=== PATIENT | female | born 1945 | race Two or more races ===

== ENCOUNTER 2016-04-06 14:38 | Inpatient (IN) | payer MEDICAID ==
[2016-04-06] VITALS (19 sets, daily range): BP systolic 49–128; BP diastolic 26–58
[~2016-04-06] VITALS: Ht 160 cm; Wt 48.2 kg
[~2016-04-06 14:38] MED LIST: ASPI-231 PO; DOCU-80 PO; FOLITAB45 OR; MIDO10TA PO; OMEP20CA5 PO; PRE5T GT; SEVE800T8 PO; SIMV-13 PO
[2016-04-06] MEDS ORDERED: NITROGLYCERIN 0.4 MG SL TAB SL PRN (16:30)
[2016-04-06] MEDS ORDERED: MORPHINE SULF INJ 2 MG/ML SYRINGE 1ML IV PRN ×2 (16:30)
[2016-04-06] MEDS ORDERED: ONDANSETRON HCL 4 MG/2 ML VIAL IV PRN (16:30)
[2016-04-06] MEDS ORDERED: cefTRIAXone 1GM/50ML D5W 50 ML IV ONE (16:30)
[2016-04-06 16:45] LABS: Albumin 3.6 g/dL (3.4-5.0); BUN/Creatinine Ratio 10.9; Calcium 8.2 mg/dL (8.5-10.1); Magnesium 3.7 mg/dL (1.6-2.6); Potassium 4.1 mmol/L (3.5-5.1)
[2016-04-06] MEDS ORDERED: PANTOPRAZOLE SODIUM 40 MG/10 ML VIAL IV ONE (16:45)
[2016-04-06 16:47] LABS: Bilirubin, Total 0.5 mg/dL (0.2-1.0); Total Protein 7.4 g/dL (6.4-8.2)
[2016-04-06] MEDS ORDERED: ETOMIDATE (2MG/ML) 20ML VIAL IV ONE ×2 (16:48→17:00)
[2016-04-06] MEDS ORDERED: SUCCINYLCHOLINE CHLORIDE 20 MG/ML 10ML VIAL IV ONE ×2 (16:49→17:00)
[2016-04-06] MEDS ORDERED: ROCURONIUM 10MG/ML 10ML VIAL IV ONE (16:49)
[2016-04-06] MEDS ORDERED: MIDAZOLAM DRIP 100 mg/100mL NS 100 ML IV ONE (16:53)
[2016-04-06] MEDS ORDERED: ENOXAPARIN SOD 30 MG/0.3 ML SYRINGE SC ONE (17:00)
[2016-04-06] MEDS ORDERED: MIDAZOLAM DRIP 100 mg/100mL NS 100 ML IV SCH (17:15)
[2016-04-06] MEDS ORDERED: AZITHROMYCIN 500MG/D5W 250ML 250 ML IV ONE (17:15)
[2016-04-06] MEDS: BUMETANIDE (0.25MG/ML) 4 ML VIAL IV SCH (17:31)
[2016-04-06] MEDS ORDERED: PROPOFOL 100 ML IV ONE (17:38)
[2016-04-06] MEDS ORDERED: PROPOFOL 10 MG/ML 20 ML IV ONE (17:45)
[2016-04-06] MEDS ORDERED: PROPOFOL 100 ML IV SCH (17:45)
[2016-04-06 17:58] LABS: Basophils # (auto) 0 uL; Basophils % (auto) 0.2 % (0.0-2.0); DEFINITIVE VIEW TRANSMISSION; Eosinophils # (auto) 0.1 uL; Eosinophils % (auto) 0.6 % (0.0-7.0); Hematocrit 28.6 % (36.0-46.0); Hemoglobin 8.5 g/dL (12.2-16.2); Lymphocytes # (auto) 1.1 uL; Lymphocytes % (auto) 5.8 % (10.0-50.0); Mean Corpuscular Hemoglobin 32.5 pg (28.0-32.0); Mean Corpuscular Hgb Conc. 29.7 g/dL (32.0-36.0); Mean Corpuscular Volume 109.5 fL (80.0-100.0); Mean Platelet Volume 7.6 fL (7.4-10.4); Monocytes # (auto) 2.2 uL; Monocytes % (auto) 11.7 % (0.0-12.0); Neutrophils # (auto) 15.3 uL; Neutrophils % (auto) 81.7 % (37.0-80.0); Platelet Count (auto) 409 10^3/uL (140-450); White Blood Cell 18.7 10^3/uL (4.4-10.8)
[2016-04-06] MEDS: NOREPINEPHRINE BITARTRATE 250 ML IV SCH ×3 (17:59→20:00)
[2016-04-06] MEDS: ALBUTEROL SULF 2.5 MG/0.5ML(0.5%) NEB SOLN NEB SCH (18:00)
[2016-04-06] MEDS: IPRATROPIUM BROM 0.5 MG/2.5ML INH SOL NEB SCH (18:00)
[2016-04-06 18:01] LABS: Red Cell Distribution Width 23.3 % (11.6-16.0)
[2016-04-06 18:26] LABS: Anisocytosis Moderate; Macrocytosis Moderate; Platelet Estimate Adequate
[2016-04-06] MEDS: PROPOFOL 100 ML IV SCH (20:00)
[2016-04-06] MEDS: MIDAZOLAM DRIP 100 mg/100mL NS 100 ML IV SCH (20:00)
[2016-04-06] MEDS: SODIUM CHLORIDE 0.9% 1,000 ML IV SCH (20:00)
[2016-04-06] MEDS ORDERED: FAMOTIDINE (10MG/ML) 2ML VL IV SCH (22:00)
[2016-04-06] MEDS ORDERED: INFLUENZA QUAD 2016-2017 0.5 ML SYRG IM ONE (22:30)
[2016-04-06] MEDS ORDERED: PNEUMOCOCCAL VACC POLYS 25 MCG/0.5 ML VIAL IM ONE (22:30)
[2016-04-07] VITALS (106 sets, daily range): BP systolic 81–152; BP diastolic 21–82
[2016-04-07] MEDS: IPRATROPIUM BROM 0.5 MG/2.5ML INH SOL NEB SCH ×4 (00:25→18:42)
[2016-04-07] MEDS: ALBUTEROL SULF 2.5 MG/0.5ML(0.5%) NEB SOLN NEB SCH ×4 (00:25→18:42)
[2016-04-07] MEDS: ACCU-CHEK COMFORT CURVE STRIP VI SCH ×4 (01:00→17:52)
[2016-04-07] MEDS: InsuLIN REG 1unit/0.01ml Soln (100units/ml) SC SCH ×4 (01:00→17:52)
[2016-04-07 03:50] LABS: Basophils # (auto) 0 uL; DEFINITIVE VIEW TRANSMISSION; Eosinophils # (auto) 0.1 uL; Eosinophils % (auto) 0.2 % (0.0-7.0); Hematocrit 25.5 % (36.0-46.0); Hemoglobin 7.8 g/dL (12.2-16.2); Lymphocytes # (auto) 1.4 uL; Lymphocytes % (auto) 6.6 % (10.0-50.0); Mean Corpuscular Hemoglobin 32.2 pg (28.0-32.0); Mean Corpuscular Hgb Conc. 30.4 g/dL (32.0-36.0); Mean Corpuscular Volume 105.8 fL (80.0-100.0); Mean Platelet Volume 7.9 fL (7.4-10.4); Monocytes # (auto) 1.6 uL; Monocytes % (auto) 7.4 % (0.0-12.0); Neutrophils # (auto) 18.3 uL; Neutrophils % (auto) 85.8 % (37.0-80.0); Platelet Count (auto) 394 10^3/uL (140-450); White Blood Cell 21.3 10^3/uL (4.4-10.8)
[2016-04-07 04:02] LABS: BUN/Creatinine Ratio 11.7; Calcium 8.3 mg/dL (8.5-10.1); Potassium 3.9 mmol/L (3.5-5.1)
[2016-04-07 04:04] LABS: Red Cell Distribution Width 24.2 % (11.6-16.0)
[2016-04-07 04:05] LABS: Bilirubin, Total 0.5 mg/dL (0.2-1.0); Total Protein 6.6 g/dL (6.4-8.2)
[2016-04-07 04:20] LABS: INR 1.23 (0.9-1.15); Prothrombin Time 12.7 sec (9.37-12.3)
[2016-04-07 04:33] LABS: Anisocytosis Moderate; Hypochromia Moderate; Macrocytosis Moderate; Platelet Estimate Adequate
[2016-04-07 04:34] LABS: Polychromasia Slight
[2016-04-07] MEDS: BUMETANIDE (0.25MG/ML) 4 ML VIAL IV SCH ×2 (06:00→19:00)
[2016-04-07] MEDS: PANTOPRAZOLE SODIUM 40 MG/10 ML VIAL IV SCH (09:31)
[2016-04-07] MEDS: cefTRIAXone 1GM/50ML D5W 50 ML IV SCH (09:31)
[2016-04-07] MEDS ORDERED: ENOXAPARIN SOD 30 MG/0.3 ML SYRINGE SC SCH (10:00)
[2016-04-07] MEDS ORDERED: ENOXAPARIN SOD 100 MG/1 ML SYRINGE SC SCH ×2 (10:00→22:00)
[2016-04-07] MEDS ORDERED: ENOXAPARIN SOD 40 MG/0.4 ML SYRINGE SC SCH (10:00)
[2016-04-07] MEDS: AZITHROMYCIN 500MG/D5W 250ML 250 ML IV SCH (13:05)
[2016-04-07] MEDS: SODIUM CHLORIDE 0.9% 1,000 ML IV SCH (13:05)
[2016-04-07] MEDS: PROPOFOL 100 ML IV SCH (14:00)
[2016-04-07] MEDS: NOREPINEPHRINE BITARTRATE 250 ML IV SCH (17:51)
[2016-04-07] MEDS: MIDAZOLAM DRIP 100 mg/100mL NS 100 ML IV SCH (19:00)
[2016-04-08] VITALS (96 sets, daily range): BP systolic 89–147; BP diastolic 33–98
[2016-04-08] MEDS: ALBUTEROL SULF 2.5 MG/0.5ML(0.5%) NEB SOLN NEB SCH ×4 (00:16→18:44)
[2016-04-08] MEDS: IPRATROPIUM BROM 0.5 MG/2.5ML INH SOL NEB SCH ×4 (00:16→18:44)
[2016-04-08] MEDS: ACCU-CHEK COMFORT CURVE STRIP VI SCH ×5 (00:28→23:44)
[2016-04-08] MEDS: SODIUM CHLORIDE 0.9% 1,000 ML IV SCH ×2 (01:50→17:35)
[2016-04-08] MEDS: PROPOFOL 100 ML IV SCH ×2 (04:05→09:47)
[2016-04-08] MEDS: InsuLIN REG 1unit/0.01ml Soln (100units/ml) SC SCH ×5 (06:30→23:46)
[2016-04-08] MEDS: BUMETANIDE (0.25MG/ML) 4 ML VIAL IV SCH ×2 (06:30→17:35)
[2016-04-08 08:00] LABS: Basophils # (auto) 0 uL; Basophils % (auto) 0.2 % (0.0-2.0); DEFINITIVE VIEW TRANSMISSION; Eosinophils # (auto) 0.1 uL; Hematocrit 23.5 % (36.0-46.0); Hemoglobin 7.5 g/dL (12.2-16.2); Lymphocytes # (auto) 1.8 uL; Lymphocytes % (auto) 12.6 % (10.0-50.0); Mean Corpuscular Hemoglobin 32.7 pg (28.0-32.0); Mean Corpuscular Hgb Conc. 31.7 g/dL (32.0-36.0); Mean Platelet Volume 8.2 fL (7.4-10.4); Monocytes # (auto) 1.4 uL; Monocytes % (auto) 9.8 % (0.0-12.0); Neutrophils # (auto) 10.9 uL; Neutrophils % (auto) 76.4 % (37.0-80.0); Platelet Count (auto) 347 10^3/uL (140-450); White Blood Cell 14.3 10^3/uL (4.4-10.8)
[2016-04-08 08:04] LABS: Red Cell Distribution Width 24.6 % (11.6-16.0)
[2016-04-08 08:24] LABS: Albumin 2.7 g/dL (3.4-5.0); BUN/Creatinine Ratio 13.7; Bilirubin, Total 0.5 mg/dL (0.2-1.0); Calcium 8.5 mg/dL (8.5-10.1); Potassium 4.6 mmol/L (3.5-5.1); Total Protein 5.9 g/dL (6.4-8.2)
[2016-04-08] MEDS: cefTRIAXone 1GM/50ML D5W 50 ML IV SCH (09:00)
[2016-04-08] MEDS ORDERED: METOPROLOL TARTRATE 1MG/1ML-5ML VIAL IV PRN ×2 (09:30→11:00)
[2016-04-08] MEDS: ENOXAPARIN SOD 60 MG/0.6 ML SYRINGE SC SCH (10:04)
[2016-04-08] MEDS: PANTOPRAZOLE SODIUM 40 MG/10 ML VIAL IV SCH (10:04)
[2016-04-08] MEDS: AZITHROMYCIN 500MG/D5W 250ML 250 ML IV SCH (10:04)
[2016-04-08] MEDS ORDERED: SODIUM CHL 0.9% 1000 ML BAG XX ONE (12:30)
[2016-04-08] MEDS ORDERED: EPOETIN ALFA 10,000 UNIT/1 ML VIAL IV ONE (12:30)
[2016-04-08 15:37] LABS: Anisocytosis Moderate; Macrocytosis Slight; Platelet Estimate Adequate
[2016-04-08] MEDS: MIDAZOLAM DRIP 100 mg/100mL NS 100 ML IV SCH (17:56)
[2016-04-08] MEDS: NOREPINEPHRINE BITARTRATE 250 ML IV SCH (17:56)
[2016-04-08] MEDS: DEXTROSE (50%) 50ML SYRG IV PRN (23:50)
[2016-04-09] VITALS (66 sets, daily range): BP systolic 109–141; BP diastolic 50–82
[2016-04-09] MEDS: IPRATROPIUM BROM 0.5 MG/2.5ML INH SOL NEB SCH ×4 (00:34→18:42)
[2016-04-09] MEDS: ALBUTEROL SULF 2.5 MG/0.5ML(0.5%) NEB SOLN NEB SCH ×4 (00:34→18:42)
[2016-04-09] MEDS: InsuLIN REG 1unit/0.01ml Soln (100units/ml) SC SCH ×3 (05:30→18:52)
[2016-04-09] MEDS: BUMETANIDE (0.25MG/ML) 4 ML VIAL IV SCH (05:30)
[2016-04-09] MEDS: ACCU-CHEK COMFORT CURVE STRIP VI SCH ×3 (05:30→18:52)
[2016-04-09 06:35] LABS: Basophils # (auto) 0 uL; Basophils % (auto) 0.2 % (0.0-2.0); DEFINITIVE VIEW TRANSMISSION; Eosinophils # (auto) 0.1 uL; Eosinophils % (auto) 0.7 % (0.0-7.0); Hematocrit 33.1 % (36.0-46.0); Hemoglobin 10.9 g/dL (12.2-16.2); Lymphocytes # (auto) 1.2 uL; Lymphocytes % (auto) 9.5 % (10.0-50.0); Mean Corpuscular Hemoglobin 31.6 pg (28.0-32.0); Mean Corpuscular Volume 95.8 fL (80.0-100.0); Monocytes # (auto) 1.8 uL; Monocytes % (auto) 14.5 % (0.0-12.0); Neutrophils # (auto) 9.4 uL; Neutrophils % (auto) 75.1 % (37.0-80.0); Platelet Count (auto) 247 10^3/uL (140-450); Red Cell Distribution Width 21.6 % (11.6-16.0); SUSPECT VIEW TRANSMISSION; White Blood Cell 12.5 10^3/uL (4.4-10.8)
[2016-04-09 06:46] LABS: BUN/Creatinine Ratio 11.1; Calcium 8.3 mg/dL (8.5-10.1); Potassium 3.4 mmol/L (3.5-5.1)
[2016-04-09 08:42] LABS: Anisocytosis Moderate; Platelet Estimate Adequate; Stomatocytes Few
[2016-04-09] MEDS: cefTRIAXone 1GM/50ML D5W 50 ML IV SCH (09:03)
[2016-04-09] MEDS ORDERED: Novasource Renal 1 Liter GT SCH (09:30)
[2016-04-09] MEDS: DEXTROSE (50%) 50ML SYRG IV PRN (10:55)
[2016-04-09] MEDS: ENOXAPARIN SOD 60 MG/0.6 ML SYRINGE SC SCH (10:56)
[2016-04-09] MEDS: PANTOPRAZOLE SODIUM 40 MG/10 ML VIAL IV SCH (10:56)
[2016-04-09] MEDS: SODIUM CHLORIDE 0.9% 1,000 ML IV SCH (10:58)
[2016-04-09] MEDS: AZITHROMYCIN 500MG/D5W 250ML 250 ML IV SCH (11:01)
[2016-04-09] MEDS: MIDAZOLAM DRIP 100 mg/100mL NS 100 ML IV SCH (17:56)
[2016-04-09] MEDS: HYDROcodone-ACET 5/325MG TAB PO PRN (22:35)
[2016-04-10] VITALS (68 sets, daily range): BP systolic 75–133; BP diastolic 20–74
[2016-04-10] MEDS: ALBUTEROL SULF 2.5 MG/0.5ML(0.5%) NEB SOLN NEB SCH ×4 (00:18→18:31)
[2016-04-10] MEDS: IPRATROPIUM BROM 0.5 MG/2.5ML INH SOL NEB SCH ×4 (00:18→18:31)
[2016-04-10] MEDS: ACCU-CHEK COMFORT CURVE STRIP VI SCH ×4 (00:49→18:16)
[2016-04-10 04:19] LABS: Basophils # (auto) 0 uL; DEFINITIVE VIEW TRANSMISSION; Eosinophils # (auto) 0.1 uL; Eosinophils % (auto) 1.1 % (0.0-7.0); Hematocrit 31.6 % (36.0-46.0); Hemoglobin 10.2 g/dL (12.2-16.2); Lymphocytes # (auto) 0.9 uL; Mean Corpuscular Hgb Conc. 32.2 g/dL (32.0-36.0); Mean Corpuscular Volume 96.2 fL (80.0-100.0); Mean Platelet Volume 8.2 fL (7.4-10.4); Monocytes # (auto) 1.5 uL; Monocytes % (auto) 11.9 % (0.0-12.0); Neutrophils # (auto) 10.1 uL; Platelet Count (auto) 279 10^3/uL (140-450); White Blood Cell 12.6 10^3/uL (4.4-10.8)
[2016-04-10 04:42] LABS: BUN/Creatinine Ratio 12.5; Calcium 8.5 mg/dL (8.5-10.1); Potassium 3.4 mmol/L (3.5-5.1)
[2016-04-10 04:48] LABS: Red Cell Distribution Width 22.8 % (11.6-16.0)
[2016-04-10 05:42] LABS: Anisocytosis Moderate; Platelet Estimate Adequate
[2016-04-10 05:43] LABS: Stomatocytes Few
[2016-04-10] MEDS: InsuLIN REG 1unit/0.01ml Soln (100units/ml) SC SCH ×4 (06:00→18:00)
[2016-04-10] MEDS: HYDROcodone-ACET 5/325MG TAB PO PRN (06:02)
[2016-04-10] MEDS: ENOXAPARIN SOD 60 MG/0.6 ML SYRINGE SC SCH (11:01)
[2016-04-10] MEDS: PANTOPRAZOLE SODIUM 40 MG/10 ML VIAL IV SCH (11:01)
[2016-04-10] MEDS: cefTRIAXone 1GM/50ML D5W 50 ML IV SCH (15:17)
[2016-04-10] MEDS: AZITHROMYCIN 500MG/D5W 250ML 250 ML IV SCH (15:55)
[2016-04-10] MEDS ORDERED: NOREPINEPHRINE BITARTRATE 250 ML IV ONE (16:27)
[2016-04-10] MEDS: NOREPINEPHRINE BITARTRATE 250 ML IV SCH (16:44)
[2016-04-10] MEDS: MIDAZOLAM DRIP 100 mg/100mL NS 100 ML IV SCH (17:56)
[2016-04-10] MEDS ORDERED: BACTRIM 5MG/KG Q8HR PER RX 0 ML IV SCH (18:00)
[2016-04-10] MEDS ORDERED: SULFAMETH-TRIMETH 80/16MG-ML 30 ML in D5W 5% 500 ML IV PRN (19:00)
[2016-04-11] VITALS (103 sets, daily range): BP systolic 70–138; BP diastolic 22–105
[2016-04-11] MEDS ORDERED: ACETAMINOPHEN 650 mg PER 20 mL UD ONE (00:37)
[2016-04-11] MEDS: IPRATROPIUM BROM 0.5 MG/2.5ML INH SOL NEB SCH ×4 (00:43→18:06)
[2016-04-11] MEDS: ALBUTEROL SULF 2.5 MG/0.5ML(0.5%) NEB SOLN NEB SCH ×4 (00:43→18:06)
[2016-04-11] MEDS: ACCU-CHEK COMFORT CURVE STRIP VI SCH ×4 (01:08→18:00)
[2016-04-11] MEDS: InsuLIN REG 1unit/0.01ml Soln (100units/ml) SC SCH ×4 (01:08→18:00)
[2016-04-11] MEDS ORDERED: ALBUMIN 5% 250 ML IV ONE (03:00)
[2016-04-11 06:25] LABS: Basophils # (auto) 0 uL; DEFINITIVE VIEW TRANSMISSION; Eosinophils # (auto) 0.2 uL; Eosinophils % (auto) 1.1 % (0.0-7.0); Hematocrit 33.6 % (36.0-46.0); Hemoglobin 10.7 g/dL (12.2-16.2); Lymphocytes # (auto) 1.1 uL; Lymphocytes % (auto) 8.3 % (10.0-50.0); Mean Corpuscular Hemoglobin 30.6 pg (28.0-32.0); Mean Corpuscular Hgb Conc. 31.9 g/dL (32.0-36.0); Mean Corpuscular Volume 95.8 fL (80.0-100.0); Mean Platelet Volume 8.2 fL (7.4-10.4); Monocytes # (auto) 1.6 uL; Monocytes % (auto) 11.4 % (0.0-12.0); Neutrophils % (auto) 79.2 % (37.0-80.0); Platelet Count (auto) 330 10^3/uL (140-450); SUSPECT VIEW TRANSMISSION; White Blood Cell 13.8 10^3/uL (4.4-10.8)
[2016-04-11 06:37] LABS: Red Cell Distribution Width 22.5 % (11.6-16.0)
[2016-04-11 06:59] LABS: BUN/Creatinine Ratio 12.3
[2016-04-11 07:31] LABS: Anisocytosis Slight; Platelet Estimate Adequate
[2016-04-11] MEDS: cefTRIAXone 1GM/50ML D5W 50 ML IV SCH (09:32)
[2016-04-11] MEDS: PANTOPRAZOLE SODIUM 40 MG/10 ML VIAL IV SCH (09:32)
[2016-04-11] MEDS: ENOXAPARIN SOD 60 MG/0.6 ML SYRINGE SC SCH (09:32)
[2016-04-11] MEDS: AZITHROMYCIN 500MG/D5W 250ML 250 ML IV SCH (10:14)
[2016-04-11] MEDS ORDERED: SODIUM CHL 0.9% 1000 ML BAG XX ONE (14:30)
[2016-04-11] MEDS ORDERED: EPOETIN ALFA 2,000 UNIT/1 ML VIAL IV ONE (14:30)
[2016-04-11] MEDS ORDERED: EPOETIN ALFA 3,000 UNIT/1 ML VIAL IV ONE (14:30)
[2016-04-11] MEDS: NOREPINEPHRINE BITARTRATE 250 ML IV SCH (16:30)
[2016-04-11] MEDS: MIDAZOLAM DRIP 100 mg/100mL NS 100 ML IV SCH (17:56)
[2016-04-11] MEDS ORDERED: SODIUM CHLORIDE 0.9% 1,000 ML IV SCH (19:30)
[2016-04-11] MEDS: ACETAMINOPHEN 650 mg PER 20 mL UD GT PRN (20:46)
[2016-04-11] MEDS: METOPROLOL TARTRATE 25 MG TAB PO SCH (22:00)
[2016-04-12] VITALS (84 sets, daily range): BP systolic 74–160; BP diastolic 24–108
[2016-04-12] MEDS: IPRATROPIUM BROM 0.5 MG/2.5ML INH SOL NEB SCH ×4 (00:11→18:25)
[2016-04-12] MEDS: ALBUTEROL SULF 2.5 MG/0.5ML(0.5%) NEB SOLN NEB SCH ×4 (00:11→20:28)
[2016-04-12] MEDS: ACCU-CHEK COMFORT CURVE STRIP VI SCH ×4 (01:05→18:40)
[2016-04-12] MEDS: InsuLIN REG 1unit/0.01ml Soln (100units/ml) SC SCH ×4 (01:07→18:42)
[2016-04-12 04:10] LABS: Potassium 4.3 mmol/L (3.5-5.1)
[2016-04-12 04:12] LABS: Basophils # (auto) 0 uL; Basophils % (auto) 0.1 % (0.0-2.0); DEFINITIVE VIEW TRANSMISSION; Eosinophils # (auto) 0.3 uL; Hematocrit 33.1 % (36.0-46.0); Hemoglobin 10.6 g/dL (12.2-16.2); Lymphocytes # (auto) 1.2 uL; Lymphocytes % (auto) 8.6 % (10.0-50.0); Mean Corpuscular Hemoglobin 30.6 pg (28.0-32.0); Mean Corpuscular Hgb Conc. 32.1 g/dL (32.0-36.0); Mean Corpuscular Volume 95.4 fL (80.0-100.0); Mean Platelet Volume 8.1 fL (7.4-10.4); Monocytes # (auto) 1.7 uL; Monocytes % (auto) 11.9 % (0.0-12.0); Neutrophils # (auto) 10.7 uL; Neutrophils % (auto) 77.4 % (37.0-80.0); Platelet Count (auto) 305 10^3/uL (140-450); White Blood Cell 13.9 10^3/uL (4.4-10.8)
[2016-04-12 04:15] LABS: Albumin 2.5 g/dL (3.4-5.0); BUN/Creatinine Ratio 13.5; Calcium 8.3 mg/dL (8.5-10.1)
[2016-04-12 04:17] LABS: Bilirubin, Total 0.5 mg/dL (0.2-1.0); Total Protein 6.7 g/dL (6.4-8.2)
[2016-04-12 04:21] LABS: Red Cell Distribution Width 21.4 % (11.6-16.0)
[2016-04-12 04:37] LABS: Anisocytosis Moderate; Platelet Estimate Adequate
[2016-04-12] MEDS ORDERED: SODIUM CHL 0.9% 1000 ML BAG XX ONE ×2 (09:00→18:00)
[2016-04-12] MEDS ORDERED: EPOETIN ALFA 3,000 UNIT/1 ML VIAL IV ONE (09:00)
[2016-04-12] MEDS ORDERED: EPOETIN ALFA 2,000 UNIT/1 ML VIAL IV ONE (09:00)
[2016-04-12] MEDS: METOPROLOL TARTRATE 25 MG TAB PO SCH ×2 (10:00→22:00)
[2016-04-12] MEDS: NOREPINEPHRINE BITARTRATE 250 ML IV SCH ×2 (11:45→16:21)
[2016-04-12] MEDS: ENOXAPARIN SOD 60 MG/0.6 ML SYRINGE SC SCH (12:45)
[2016-04-12] MEDS: PANTOPRAZOLE SODIUM 40 MG/10 ML VIAL IV SCH (12:45)
[2016-04-12] MEDS: cefTRIAXone 1GM/50ML D5W 50 ML IV SCH (12:45)
[2016-04-12] MEDS: AZITHROMYCIN 500MG/D5W 250ML 250 ML IV SCH (13:30)
[2016-04-12] MEDS ORDERED: VANCOMYCIN PER PHARMACY 0 MG IV SCH (17:00)
[2016-04-12] MEDS: MIDAZOLAM DRIP 100 mg/100mL NS 100 ML IV SCH (17:56)
[2016-04-12] MEDS ORDERED: VANCOMYCIN 1GM/250ML D5W 250 ML IV ONE (18:00)
[2016-04-12] MEDS: NOREPINEPHRINE BITARTRATE 32 MG in D5W 5% 218 ML IV SCH (18:15)
[2016-04-12] MEDS: MEROPENEM 500MG IVPB 100 ML IV SCH (21:00)
[2016-04-12] MEDS: HYDROcodone-ACET 5/325MG TAB PO PRN (21:35)
[2016-04-13] VITALS (73 sets, daily range): BP systolic 75–140; BP diastolic 32–99
[2016-04-13] MEDS: ALBUTEROL SULF 2.5 MG/0.5ML(0.5%) NEB SOLN NEB SCH ×4 (00:41→18:52)
[2016-04-13] MEDS: IPRATROPIUM BROM 0.5 MG/2.5ML INH SOL NEB SCH ×4 (00:41→18:52)
[2016-04-13 04:03] LABS: Basophils # (auto) 0 uL; Basophils % (auto) 0.3 % (0.0-2.0); DEFINITIVE VIEW TRANSMISSION; Eosinophils # (auto) 0.2 uL; Eosinophils % (auto) 1.2 % (0.0-7.0); Hematocrit 30.1 % (36.0-46.0); Hemoglobin 9.7 g/dL (12.2-16.2); Lymphocytes # (auto) 1.3 uL; Lymphocytes % (auto) 10.2 % (10.0-50.0); Mean Corpuscular Hemoglobin 30.7 pg (28.0-32.0); Mean Corpuscular Hgb Conc. 32.3 g/dL (32.0-36.0); Mean Platelet Volume 7.8 fL (7.4-10.4); Monocytes # (auto) 1.7 uL; Monocytes % (auto) 13.7 % (0.0-12.0); Neutrophils # (auto) 9.3 uL; Neutrophils % (auto) 74.6 % (37.0-80.0); Platelet Count (auto) 284 10^3/uL (140-450); White Blood Cell 12.4 10^3/uL (4.4-10.8)
[2016-04-13 04:17] LABS: Red Cell Distribution Width 21.1 % (11.6-16.0)
[2016-04-13 04:29] LABS: BUN/Creatinine Ratio 11.8; Calcium 7.7 mg/dL (8.5-10.1); Potassium 3.4 mmol/L (3.5-5.1)
[2016-04-13 04:43] LABS: Platelet Estimate Adequate
[2016-04-13 04:44] LABS: Anisocytosis Moderate
[2016-04-13] MEDS: InsuLIN REG 1unit/0.01ml Soln (100units/ml) SC SCH ×4 (05:57→18:00)
[2016-04-13] MEDS: ACCU-CHEK COMFORT CURVE STRIP VI SCH ×4 (06:00→18:00)
[2016-04-13] MEDS: PANTOPRAZOLE SODIUM 40 MG/10 ML VIAL IV SCH (09:56)
[2016-04-13] MEDS: METOPROLOL TARTRATE 25 MG TAB PO SCH ×2 (09:56→22:00)
[2016-04-13] MEDS: ENOXAPARIN SOD 60 MG/0.6 ML SYRINGE SC SCH (09:56)
[2016-04-13] MEDS: MIDAZOLAM DRIP 100 mg/100mL NS 100 ML IV SCH (12:44)
[2016-04-13] MEDS ORDERED: VANCOMYCIN 1GM/250ML D5W 250 ML IV ONE (18:00)
[2016-04-13] MEDS: MEROPENEM 500MG IVPB 100 ML IV SCH (20:30)
[2016-04-14] VITALS (34 sets, daily range): BP systolic 97–143; BP diastolic 32–96
[2016-04-14] MEDS: IPRATROPIUM BROM 0.5 MG/2.5ML INH SOL NEB SCH ×4 (00:02→19:00)
[2016-04-14] MEDS: ALBUTEROL SULF 2.5 MG/0.5ML(0.5%) NEB SOLN NEB SCH ×4 (00:02→19:00)
[2016-04-14 03:57] LABS: Basophils # (auto) 0 uL; Basophils % (auto) 0.1 % (0.0-2.0); DEFINITIVE VIEW TRANSMISSION; Eosinophils # (auto) 0 uL; Eosinophils % (auto) 0.3 % (0.0-7.0); Hematocrit 30.3 % (36.0-46.0); Hemoglobin 9.7 g/dL (12.2-16.2); Lymphocytes % (auto) 7.4 % (10.0-50.0); Mean Corpuscular Hemoglobin 30.9 pg (28.0-32.0); Mean Corpuscular Hgb Conc. 31.9 g/dL (32.0-36.0); Mean Corpuscular Volume 96.8 fL (80.0-100.0); Mean Platelet Volume 8.7 fL (7.4-10.4); Monocytes # (auto) 1.8 uL; Monocytes % (auto) 12.7 % (0.0-12.0); Neutrophils # (auto) 11.3 uL; Neutrophils % (auto) 79.5 % (37.0-80.0); Platelet Count (auto) 281 10^3/uL (140-450); SUSPECT VIEW TRANSMISSION; White Blood Cell 14.2 10^3/uL (4.4-10.8)
[2016-04-14] MEDS: HYDROcodone-ACET 5/325MG TAB PO PRN (04:11)
[2016-04-14 04:23] LABS: Albumin 2.3 g/dL (3.4-5.0); BUN/Creatinine Ratio 10.3; Bilirubin, Total 0.4 mg/dL (0.2-1.0); Potassium 3.5 mmol/L (3.5-5.1); Total Protein 6.3 g/dL (6.4-8.2)
[2016-04-14 04:44] LABS: Red Cell Distribution Width 21.4 % (11.6-16.0)
[2016-04-14 04:53] LABS: Anisocytosis Moderate; Platelet Estimate Adequate
[2016-04-14] MEDS: ACCU-CHEK COMFORT CURVE STRIP VI SCH ×3 (06:00→18:16)
[2016-04-14] MEDS: InsuLIN REG 1unit/0.01ml Soln (100units/ml) SC SCH ×4 (06:00→18:00)
[2016-04-14] MEDS: ENOXAPARIN SOD 60 MG/0.6 ML SYRINGE SC SCH (09:41)
[2016-04-14] MEDS: PANTOPRAZOLE SODIUM 40 MG/10 ML VIAL IV SCH (09:42)
[2016-04-14] MEDS: METOPROLOL TARTRATE 25 MG TAB PO SCH ×2 (09:42→22:00)
[2016-04-14] MEDS: NOREPINEPHRINE BITARTRATE 32 MG in D5W 5% 218 ML IV SCH (09:48)
[2016-04-14] MEDS ORDERED: SODIUM CHL 0.9% 1000 ML BAG XX ONE (14:45)
[2016-04-14] MEDS ORDERED: EPOETIN ALFA 3,000 UNIT/1 ML VIAL IV ONE (14:45)
[2016-04-14] MEDS ORDERED: EPOETIN ALFA 2,000 UNIT/1 ML VIAL IV ONE (14:45)
[2016-04-14] MEDS: MIDAZOLAM DRIP 100 mg/100mL NS 100 ML IV SCH (17:56)
[2016-04-14] MEDS: MEROPENEM 500MG IVPB 100 ML IV SCH (21:00)
[2016-04-15] VITALS (35 sets, daily range): BP systolic 105–168; BP diastolic 39–87
[2016-04-15] MEDS: ACCU-CHEK COMFORT CURVE STRIP VI SCH ×5 (00:14→23:56)
[2016-04-15] MEDS: ALBUTEROL SULF 2.5 MG/0.5ML(0.5%) NEB SOLN NEB SCH ×4 (00:23→20:02)
[2016-04-15] MEDS: IPRATROPIUM BROM 0.5 MG/2.5ML INH SOL NEB SCH ×4 (00:23→20:02)
[2016-04-15 03:47] LABS: Basophils # (auto) 0 uL; Basophils % (auto) 0.1 % (0.0-2.0); DEFINITIVE VIEW TRANSMISSION; Eosinophils # (auto) 0.1 uL; Eosinophils % (auto) 0.6 % (0.0-7.0); Hematocrit 30.6 % (36.0-46.0); Hemoglobin 9.6 g/dL (12.2-16.2); Lymphocytes # (auto) 1.1 uL; Lymphocytes % (auto) 6.2 % (10.0-50.0); Mean Corpuscular Hemoglobin 30.5 pg (28.0-32.0); Mean Corpuscular Hgb Conc. 31.4 g/dL (32.0-36.0); Mean Platelet Volume 7.9 fL (7.4-10.4); Monocytes # (auto) 1.7 uL; Monocytes % (auto) 9.3 % (0.0-12.0); Neutrophils # (auto) 15.4 uL; Neutrophils % (auto) 83.8 % (37.0-80.0); Platelet Count (auto) 339 10^3/uL (140-450); White Blood Cell 18.4 10^3/uL (4.4-10.8)
[2016-04-15 04:05] LABS: Albumin 2.2 g/dL (3.4-5.0); BUN/Creatinine Ratio 10.5; Calcium 9.1 mg/dL (8.5-10.1); Potassium 3.6 mmol/L (3.5-5.1)
[2016-04-15 04:08] LABS: Bilirubin, Total 0.4 mg/dL (0.2-1.0); Total Protein 6.2 g/dL (6.4-8.2)
[2016-04-15 04:47] LABS: Red Cell Distribution Width 21.4 % (11.6-16.0)
[2016-04-15] MEDS: InsuLIN REG 1unit/0.01ml Soln (100units/ml) SC SCH ×5 (06:00→23:57)
[2016-04-15] MEDS: DEXTROSE (50%) 50ML SYRG IV PRN (06:54)
[2016-04-15 06:56] LABS: Anisocytosis Moderate; Platelet Estimate Adequate
[2016-04-15] MEDS ORDERED: EPOETIN ALFA 10,000 UNIT/1 ML VIAL IV ONE (07:30)
[2016-04-15] MEDS ORDERED: SODIUM CHL 0.9% 1000 ML BAG XX ONE (07:30)
[2016-04-15] MEDS: ENOXAPARIN SOD 60 MG/0.6 ML SYRINGE SC SCH (10:00)
[2016-04-15] MEDS: PANTOPRAZOLE SODIUM 40 MG/10 ML VIAL IV SCH (10:00)
[2016-04-15] MEDS: METOPROLOL TARTRATE 25 MG TAB PO SCH ×2 (10:00→22:00)
[2016-04-15] MEDS: FLUCONAZOLE 200MG/100ML 100 ML IV SCH (14:19)
[2016-04-15] MEDS: MEROPENEM 500MG IVPB 100 ML IV SCH (19:50)
[2016-04-16] VITALS (45 sets, daily range): BP systolic 97–154; BP diastolic 46–79
[2016-04-16] MEDS: ALBUTEROL SULF 2.5 MG/0.5ML(0.5%) NEB SOLN NEB SCH ×4 (00:23→18:47)
[2016-04-16 04:03] LABS: Basophils # (auto) 0 uL; Basophils % (auto) 0.3 % (0.0-2.0); DEFINITIVE VIEW TRANSMISSION; Eosinophils # (auto) 0.1 uL; Eosinophils % (auto) 0.5 % (0.0-7.0); Hematocrit 29.2 % (36.0-46.0); Hemoglobin 8.9 g/dL (12.2-16.2); Lymphocytes # (auto) 0.9 uL; Lymphocytes % (auto) 6.7 % (10.0-50.0); Mean Corpuscular Hemoglobin 30.1 pg (28.0-32.0); Mean Corpuscular Hgb Conc. 30.5 g/dL (32.0-36.0); Mean Corpuscular Volume 98.7 fL (80.0-100.0); Mean Platelet Volume 7.4 fL (7.4-10.4); Monocytes # (auto) 1.5 uL; Monocytes % (auto) 11.2 % (0.0-12.0); Neutrophils # (auto) 10.8 uL; Neutrophils % (auto) 81.3 % (37.0-80.0); Platelet Count (auto) 315 10^3/uL (140-450); White Blood Cell 13.3 10^3/uL (4.4-10.8)
[2016-04-16 04:04] LABS: Red Cell Distribution Width 21.9 % (11.6-16.0)
[2016-04-16 04:35] LABS: BUN/Creatinine Ratio 8.4; Calcium 8.9 mg/dL (8.5-10.1); Potassium 3.7 mmol/L (3.5-5.1)
[2016-04-16 05:12] LABS: Anisocytosis Slight; Ovalocytes FEW; Platelet Estimate Adequate; Polychromasia Slight
[2016-04-16] MEDS: InsuLIN REG 1unit/0.01ml Soln (100units/ml) SC SCH ×3 (06:00→17:23)
[2016-04-16] MEDS: ACCU-CHEK COMFORT CURVE STRIP VI SCH ×3 (06:14→17:24)
[2016-04-16] MEDS: IPRATROPIUM BROM 0.5 MG/2.5ML INH SOL NEB SCH ×3 (06:53→18:47)
[2016-04-16] MEDS: PANTOPRAZOLE SODIUM 40 MG/10 ML VIAL IV SCH (10:24)
[2016-04-16] MEDS: METOPROLOL TARTRATE 25 MG TAB PO SCH ×2 (10:24→22:33)
[2016-04-16] MEDS: ENOXAPARIN SOD 60 MG/0.6 ML SYRINGE SC SCH (10:25)
[2016-04-16] MEDS: metroNIDAZOLE 500 MG TAB PO SCH ×2 (14:05→22:33)
[2016-04-16] MEDS: FLUCONAZOLE 200MG/100ML 100 ML IV SCH (14:06)
[2016-04-16] MEDS ORDERED: MORPHINE SULF INJ 2 MG/ML SYRINGE 1ML IV PRN (15:45)
[2016-04-16] MEDS ORDERED: ERTAPENEM SOD INJ 0.5 GM in SODIUM CHL 0.9% 50 ML IV ONE (16:30)
[2016-04-16 17:21] LABS: INR 1.1 (0.9-1.15); Partial Thromboplastin Time 32.9 sec (22.64-33.71); Prothrombin Time 11.3 sec (9.37-12.3)
[2016-04-16] MEDS ORDERED: WARFARIN SODIUM 5 MG TAB PO ONE (18:00)
[2016-04-16] MEDS: FLORASTOR (S. BOULARDII) 250 MG CAP PO SCH (22:33)
[2016-04-17] VITALS (26 sets, daily range): BP systolic 118–168; BP diastolic 51–95
[2016-04-17] MEDS: ACCU-CHEK COMFORT CURVE STRIP VI SCH ×5 (00:06→23:45)
[2016-04-17] MEDS: ALBUTEROL SULF 2.5 MG/0.5ML(0.5%) NEB SOLN NEB SCH ×4 (00:23→18:30)
[2016-04-17] MEDS: IPRATROPIUM BROM 0.5 MG/2.5ML INH SOL NEB SCH ×4 (00:23→18:30)
[2016-04-17 04:43] LABS: INR 1.11 (0.9-1.15); Partial Thromboplastin Time 31.5 sec (22.64-33.71); Prothrombin Time 11.4 sec (9.37-12.3)
[2016-04-17] MEDS: InsuLIN REG 1unit/0.01ml Soln (100units/ml) SC SCH ×5 (06:00→23:44)
[2016-04-17] MEDS: metroNIDAZOLE 500 MG TAB PO SCH ×3 (06:03→21:46)
[2016-04-17] MEDS: Novasource Renal 1 Liter GT SCH (06:46)
[2016-04-17 06:52] LABS: Basophils # (auto) 0 uL; Basophils % (auto) 0.1 % (0.0-2.0); DEFINITIVE VIEW TRANSMISSION; Eosinophils # (auto) 0.1 uL; Eosinophils % (auto) 0.4 % (0.0-7.0); Hematocrit 28.2 % (36.0-46.0); Hemoglobin 8.5 g/dL (12.2-16.2); Lymphocytes % (auto) 6.7 % (10.0-50.0); Mean Corpuscular Hemoglobin 30.2 pg (28.0-32.0); Mean Corpuscular Hgb Conc. 30.3 g/dL (32.0-36.0); Mean Corpuscular Volume 99.7 fL (80.0-100.0); Mean Platelet Volume 7.6 fL (7.4-10.4); Monocytes # (auto) 1.2 uL; Monocytes % (auto) 8.2 % (0.0-12.0); Neutrophils # (auto) 12.9 uL; Neutrophils % (auto) 84.6 % (37.0-80.0); Platelet Count (auto) 300 10^3/uL (140-450); SUSPECT VIEW TRANSMISSION; White Blood Cell 15.2 10^3/uL (4.4-10.8)
[2016-04-17 06:54] LABS: Red Cell Distribution Width 21.5 % (11.6-16.0)
[2016-04-17 07:16] LABS: BUN/Creatinine Ratio 11.6; Calcium 9.2 mg/dL (8.5-10.1); Potassium 3.4 mmol/L (3.5-5.1)
[2016-04-17 07:53] LABS: Anisocytosis Moderate; Platelet Estimate Adequate; Poikilocytosis Moderate
[2016-04-17 07:54] LABS: Schistocytes FEW
[2016-04-17] MEDS: FLORASTOR (S. BOULARDII) 250 MG CAP PO SCH ×2 (09:43→21:46)
[2016-04-17] MEDS: PANTOPRAZOLE SODIUM 40 MG/10 ML VIAL IV SCH (09:43)
[2016-04-17] MEDS: METOPROLOL TARTRATE 25 MG TAB PO SCH ×2 (09:44→21:47)
[2016-04-17] MEDS: ENOXAPARIN SOD 60 MG/0.6 ML SYRINGE SC SCH (09:45)
[2016-04-17] MEDS: ERTAPENEM SOD INJ 0.5 GM in SODIUM CHL 0.9% 50 ML IV SCH (12:20)
[2016-04-17] MEDS: FLUCONAZOLE 200MG/100ML 100 ML IV SCH (14:45)
[2016-04-17] MEDS ORDERED: WARFARIN SODIUM 5 MG TAB PO ONE (17:00)
[2016-04-18] VITALS (7 sets, daily range): BP systolic 112–147; BP diastolic 57–79
[2016-04-18] MEDS: ALBUTEROL SULF 2.5 MG/0.5ML(0.5%) NEB SOLN NEB SCH ×4 (05:57→19:01)
[2016-04-18] MEDS: IPRATROPIUM BROM 0.5 MG/2.5ML INH SOL NEB SCH ×4 (05:58→19:01)
[2016-04-18] MEDS: InsuLIN REG 1unit/0.01ml Soln (100units/ml) SC SCH ×3 (06:00→18:00)
[2016-04-18] MEDS: ACCU-CHEK COMFORT CURVE STRIP VI SCH ×3 (06:00→17:25)
[2016-04-18] MEDS: metroNIDAZOLE 500 MG TAB PO SCH ×3 (06:00→21:53)
[2016-04-18 06:07] LABS: Basophils # (auto) 0 uL; Basophils % (auto) 0.3 % (0.0-2.0); DEFINITIVE VIEW TRANSMISSION; Eosinophils # (auto) 0 uL; Eosinophils % (auto) 0.3 % (0.0-7.0); Hematocrit 27.7 % (36.0-46.0); Hemoglobin 8.4 g/dL (12.2-16.2); Lymphocytes # (auto) 1.2 uL; Lymphocytes % (auto) 8.5 % (10.0-50.0); Mean Corpuscular Hgb Conc. 30.2 g/dL (32.0-36.0); Mean Corpuscular Volume 99.6 fL (80.0-100.0); Mean Platelet Volume 7.8 fL (7.4-10.4); Monocytes # (auto) 1.1 uL; Monocytes % (auto) 7.9 % (0.0-12.0); Neutrophils # (auto) 11.7 uL; Platelet Count (auto) 288 10^3/uL (140-450); White Blood Cell 14.1 10^3/uL (4.4-10.8)
[2016-04-18 06:14] LABS: BUN/Creatinine Ratio 13.4; Calcium 9.4 mg/dL (8.5-10.1); Potassium 3.7 mmol/L (3.5-5.1)
[2016-04-18 06:19] LABS: Red Cell Distribution Width 22.1 % (11.6-16.0)
[2016-04-18 06:20] LABS: INR 1.43 (0.9-1.15); Prothrombin Time 14.7 sec (9.37-12.3)
[2016-04-18 06:23] LABS: Partial Thromboplastin Time 70.7 sec (22.64-33.71)
[2016-04-18 06:43] LABS: Anisocytosis Moderate; Platelet Estimate Adequate
[2016-04-18] MEDS ORDERED: ALBUMIN 25% 100 ML IV STA (07:35)
[2016-04-18] MEDS ORDERED: ALBUMIN 25% 100 ML IV ONE (07:45)
[2016-04-18] MEDS ORDERED: SODIUM CHL 0.9% 1000 ML BAG XX ONE (08:00)
[2016-04-18] MEDS ORDERED: EPOETIN ALFA 10,000 UNIT/1 ML VIAL IV ONE (08:00)
[2016-04-18] MEDS: ERTAPENEM SOD INJ 0.5 GM in SODIUM CHL 0.9% 50 ML IV SCH (09:59)
[2016-04-18] MEDS: METOPROLOL TARTRATE 25 MG TAB PO SCH ×2 (10:00→21:55)
[2016-04-18] MEDS: PANTOPRAZOLE SODIUM 40 MG/10 ML VIAL IV SCH (10:00)
[2016-04-18] MEDS: ENOXAPARIN SOD 60 MG/0.6 ML SYRINGE SC SCH (10:01)
[2016-04-18] MEDS: FLORASTOR (S. BOULARDII) 250 MG CAP PO SCH ×2 (11:06→21:53)
[2016-04-18] MEDS: FLUCONAZOLE 200MG/100ML 100 ML IV SCH (14:38)
[2016-04-18] MEDS: HYDROcodone-ACET 5/325MG TAB PO PRN (16:02)
[2016-04-18] MEDS ORDERED: WARFARIN SODIUM 5 MG TAB PO ONE (17:00)
[2016-04-19] VITALS (7 sets, daily range): BP systolic 124–161; BP diastolic 64–88
[2016-04-19] MEDS: ACCU-CHEK COMFORT CURVE STRIP VI SCH ×4 (00:56→17:31)
[2016-04-19] MEDS: IPRATROPIUM BROM 0.5 MG/2.5ML INH SOL NEB SCH ×4 (01:47→19:36)
[2016-04-19] MEDS: ALBUTEROL SULF 2.5 MG/0.5ML(0.5%) NEB SOLN NEB SCH ×4 (01:47→19:37)
[2016-04-19 05:58] LABS: Basophils # (auto) 0.1 uL; Basophils % (auto) 0.5 % (0.0-2.0); DEFINITIVE VIEW TRANSMISSION; Eosinophils # (auto) 0 uL; Eosinophils % (auto) 0.3 % (0.0-7.0); Hemoglobin 8.8 g/dL (12.2-16.2); Lymphocytes # (auto) 1.4 uL; Lymphocytes % (auto) 11.5 % (10.0-50.0); Mean Corpuscular Hemoglobin 30.4 pg (28.0-32.0); Mean Corpuscular Hgb Conc. 30.1 g/dL (32.0-36.0); Mean Corpuscular Volume 100.8 fL (80.0-100.0); Mean Platelet Volume 7.9 fL (7.4-10.4); Monocytes # (auto) 1.1 uL; Neutrophils # (auto) 9.6 uL; Neutrophils % (auto) 78.7 % (37.0-80.0); Platelet Count (auto) 267 10^3/uL (140-450); White Blood Cell 12.2 10^3/uL (4.4-10.8)
[2016-04-19] MEDS: InsuLIN REG 1unit/0.01ml Soln (100units/ml) SC SCH ×4 (06:00→17:31)
[2016-04-19 06:04] LABS: Red Cell Distribution Width 21.7 % (11.6-16.0)
[2016-04-19 06:07] LABS: Calcium 9.1 mg/dL (8.5-10.1)
[2016-04-19 06:08] LABS: INR 1.81 (0.9-1.15); Prothrombin Time 18.6 sec (9.37-12.3)
[2016-04-19] MEDS: metroNIDAZOLE 500 MG TAB PO SCH ×3 (06:15→22:27)
[2016-04-19 06:59] LABS: Anisocytosis Moderate; Platelet Estimate Adequate
[2016-04-19] MEDS ORDERED: BUDESONIDE (INHALATION) 0.5 MG/2 ML NEB NEB ONE (10:15)
[2016-04-19] MEDS: ENOXAPARIN SOD 60 MG/0.6 ML SYRINGE SC SCH (10:26)
[2016-04-19] MEDS: PANTOPRAZOLE 40 MG TAB PO SCH (10:28)
[2016-04-19] MEDS: FLORASTOR (S. BOULARDII) 250 MG CAP PO SCH ×2 (10:28→22:26)
[2016-04-19] MEDS: ERTAPENEM SOD INJ 0.5 GM in SODIUM CHL 0.9% 50 ML IV SCH (10:29)
[2016-04-19] MEDS: METOPROLOL TARTRATE 25 MG TAB PO SCH ×2 (10:29→22:27)
[2016-04-19] MEDS: FLUCONAZOLE 200MG/100ML 100 ML IV SCH (14:07)
[2016-04-19] MEDS ORDERED: WARFARIN SODIUM 5 MG TAB PO ONE (17:00)
[2016-04-19] MEDS: BUDESONIDE (INHALATION) 0.5 MG/2 ML NEB NEB SCH (19:37)
[2016-04-20] VITALS (16 sets, daily range): BP systolic 102–157; BP diastolic 58–85
[2016-04-20] MEDS: metroNIDAZOLE 500 MG TAB PO SCH ×3 (05:32→21:47)
[2016-04-20] MEDS: HYDROcodone-ACET 5/325MG TAB PO PRN (05:32)
[2016-04-20 05:56] LABS: Basophils # (auto) 0 uL; Basophils % (auto) 0.2 % (0.0-2.0); DEFINITIVE VIEW TRANSMISSION; Eosinophils # (auto) 0.1 uL; Eosinophils % (auto) 0.4 % (0.0-7.0); Hematocrit 30.4 % (36.0-46.0); Hemoglobin 9.1 g/dL (12.2-16.2); Lymphocytes # (auto) 1.5 uL; Lymphocytes % (auto) 11.4 % (10.0-50.0); Mean Corpuscular Hemoglobin 29.9 pg (28.0-32.0); Mean Corpuscular Hgb Conc. 29.8 g/dL (32.0-36.0); Mean Corpuscular Volume 100.3 fL (80.0-100.0); Mean Platelet Volume 8.4 fL (7.4-10.4); Monocytes # (auto) 1.1 uL; Monocytes % (auto) 8.5 % (0.0-12.0); Neutrophils # (auto) 10.2 uL; Neutrophils % (auto) 79.5 % (37.0-80.0); Platelet Count (auto) 290 10^3/uL (140-450); White Blood Cell 12.8 10^3/uL (4.4-10.8)
[2016-04-20] MEDS: ACCU-CHEK COMFORT CURVE STRIP VI SCH ×4 (06:00→18:26)
[2016-04-20] MEDS: InsuLIN REG 1unit/0.01ml Soln (100units/ml) SC SCH ×4 (06:00→18:00)
[2016-04-20 06:11] LABS: Red Cell Distribution Width 21.5 % (11.6-16.0)
[2016-04-20 06:12] LABS: Partial Thromboplastin Time 41.5 sec (22.64-33.71)
[2016-04-20 06:27] LABS: BUN/Creatinine Ratio 15.2; Calcium 9.6 mg/dL (8.5-10.1)
[2016-04-20 06:29] LABS: INR 2.43 (0.9-1.15)
[2016-04-20] MEDS: BUDESONIDE (INHALATION) 0.5 MG/2 ML NEB NEB SCH ×2 (07:40→18:30)
[2016-04-20] MEDS: ALBUTEROL SULF 2.5 MG/0.5ML(0.5%) NEB SOLN NEB SCH ×4 (07:42→18:30)
[2016-04-20] MEDS: IPRATROPIUM BROM 0.5 MG/2.5ML INH SOL NEB SCH ×4 (07:43→18:30)
[2016-04-20] MEDS: FLORASTOR (S. BOULARDII) 250 MG CAP PO SCH ×2 (10:00→21:47)
[2016-04-20] MEDS: METOPROLOL TARTRATE 25 MG TAB PO SCH ×2 (10:00→21:47)
[2016-04-20] MEDS: ENOXAPARIN SOD 60 MG/0.6 ML SYRINGE SC SCH (10:00)
[2016-04-20] MEDS: PANTOPRAZOLE 40 MG TAB PO SCH (10:00)
[2016-04-20] MEDS: ERTAPENEM SOD INJ 0.5 GM in SODIUM CHL 0.9% 50 ML IV SCH (11:40)
[2016-04-20] MEDS: FLUCONAZOLE 200MG/100ML 100 ML IV SCH (14:27)
[2016-04-20 15:38] LABS: Anisocytosis Moderate; Platelet Estimate Adequate
[2016-04-20] MEDS ORDERED: WARFARIN SODIUM 2 MG TAB PO ONE (17:00)
[2016-04-20] MEDS ORDERED: ALBUTEROL SULF 2.5 MG/0.5ML(0.5%) NEB SOLN ONE (21:43)
[2016-04-20] MEDS: ACETAMINOPHEN 650 mg PER 20 mL UD GT PRN (21:48)
[2016-04-20] MEDS ORDERED: ALBUTEROL SULF 2.5 MG/0.5ML(0.5%) NEB SOLN NEB ONE (22:00)
[2016-04-21] VITALS (7 sets, daily range): BP systolic 113–148; BP diastolic 63–86
[2016-04-21] MEDS: ACCU-CHEK COMFORT CURVE STRIP VI SCH ×4 (00:09→19:49)
[2016-04-21] MEDS: DEXTROSE (50%) 50ML SYRG IV PRN (00:41)
[2016-04-21] MEDS: metroNIDAZOLE 500 MG TAB PO SCH ×3 (05:24→21:08)
[2016-04-21] MEDS: ACETAMINOPHEN 650 mg PER 20 mL UD GT PRN (05:25)
[2016-04-21] MEDS: InsuLIN REG 1unit/0.01ml Soln (100units/ml) SC SCH ×4 (05:25→19:49)
[2016-04-21 06:01] LABS: Basophils # (auto) 0 uL; Basophils % (auto) 0.2 % (0.0-2.0); DEFINITIVE VIEW TRANSMISSION; Eosinophils # (auto) 0.1 uL; Eosinophils % (auto) 0.6 % (0.0-7.0); Hematocrit 31.5 % (36.0-46.0); Hemoglobin 9.4 g/dL (12.2-16.2); Lymphocytes # (auto) 1.8 uL; Lymphocytes % (auto) 17.8 % (10.0-50.0); Mean Corpuscular Hemoglobin 29.6 pg (28.0-32.0); Mean Corpuscular Hgb Conc. 29.7 g/dL (32.0-36.0); Mean Corpuscular Volume 99.8 fL (80.0-100.0); Mean Platelet Volume 8.5 fL (7.4-10.4); Monocytes # (auto) 1.2 uL; Monocytes % (auto) 11.4 % (0.0-12.0); Neutrophils # (auto) 7.1 uL; Platelet Count (auto) 310 10^3/uL (140-450); White Blood Cell 10.1 10^3/uL (4.4-10.8)
[2016-04-21 06:12] LABS: Red Cell Distribution Width 21.5 % (11.6-16.0)
[2016-04-21 06:23] LABS: Partial Thromboplastin Time 45.3 sec (22.64-33.71)
[2016-04-21 06:30] LABS: Prothrombin Time 66.6 sec (9.37-12.3)
[2016-04-21 06:31] LABS: INR 6.47 (0.9-1.15)
[2016-04-21] MEDS: ALBUTEROL SULF 2.5 MG/0.5ML(0.5%) NEB SOLN NEB SCH ×4 (09:07→18:24)
[2016-04-21] MEDS: IPRATROPIUM BROM 0.5 MG/2.5ML INH SOL NEB SCH ×4 (09:07→18:24)
[2016-04-21] MEDS: BUDESONIDE (INHALATION) 0.5 MG/2 ML NEB NEB SCH ×2 (10:00→18:25)
[2016-04-21 10:31] LABS: Potassium 5.4 mmol/L (3.5-5.1)
[2016-04-21 10:33] LABS: Albumin 2.7 g/dL (3.4-5.0); Bilirubin, Total 0.5 mg/dL (0.2-1.0); Calcium 8.8 mg/dL (8.5-10.1)
[2016-04-21 10:35] LABS: Anisocytosis Slight; Platelet Estimate Adequate
[2016-04-21] MEDS: METOPROLOL TARTRATE 25 MG TAB PO SCH ×2 (10:38→21:07)
[2016-04-21] MEDS: FLORASTOR (S. BOULARDII) 250 MG CAP PO SCH ×2 (10:39→21:07)
[2016-04-21] MEDS: PANTOPRAZOLE 40 MG TAB PO SCH (10:39)
[2016-04-21] MEDS: ERTAPENEM SOD INJ 0.5 GM in SODIUM CHL 0.9% 50 ML IV SCH (10:39)
[2016-04-21 12:20] LABS: Partial Thromboplastin Time 43.9 sec (22.64-33.71)
[2016-04-21 12:48] LABS: Prothrombin Time 98.4 sec (9.37-12.3)
[2016-04-21 12:50] LABS: INR 9.55 (0.9-1.15)
[2016-04-21] MEDS ORDERED: PHYTONADIONE (VIT K)10 MG/ML 1ML VIAL ONE (12:55)
[2016-04-21] MEDS ORDERED: PHYTONADIONE (VIT K)10 MG/ML 1ML VIAL SUBCUT ONE (13:00)
[2016-04-21] MEDS ORDERED: SODIUM CHL 0.9% 1000 ML BAG XX ONE (13:30)
[2016-04-21] MEDS ORDERED: EPOETIN ALFA 2,000 UNIT/1 ML VIAL IV ONE ×2 (13:30→14:15)
[2016-04-21] MEDS ORDERED: EPOETIN ALFA 10,000 UNIT/1 ML VIAL IV ONE (13:30)
[2016-04-21] MEDS ORDERED: EPOETIN ALFA 3,000 UNIT/1 ML VIAL IV ONE (14:00)
[2016-04-21] MEDS: FLUCONAZOLE 200MG/100ML 100 ML IV SCH (14:18)
[2016-04-22] VITALS (7 sets, daily range): BP systolic 103–124; BP diastolic 53–65
[2016-04-22] MEDS: metroNIDAZOLE 500 MG TAB PO SCH ×3 (05:34→21:29)
[2016-04-22 05:39] LABS: DEFINITIVE VIEW TRANSMISSION; Eosinophils # (auto) 0.1 uL; Hematocrit 31.1 % (36.0-46.0)
[2016-04-22 05:40] LABS: Basophils # (auto) 0.1 uL; Basophils % (auto) 0.7 % (0.0-2.0); Eosinophils % (auto) 0.7 % (0.0-7.0); Hemoglobin 9.5 g/dL (12.2-16.2); Lymphocytes # (auto) 2.5 uL; Lymphocytes % (auto) 17.6 % (10.0-50.0); Mean Corpuscular Hemoglobin 30.2 pg (28.0-32.0); Mean Corpuscular Hgb Conc. 30.5 g/dL (32.0-36.0); Mean Corpuscular Volume 98.8 fL (80.0-100.0); Mean Platelet Volume 8.6 fL (7.4-10.4); Monocytes # (auto) 1.5 uL; Neutrophils # (auto) 9.8 uL; Platelet Count (auto) 291 10^3/uL (140-450); White Blood Cell 13.9 10^3/uL (4.4-10.8)
[2016-04-22] MEDS: IPRATROPIUM BROM 0.5 MG/2.5ML INH SOL NEB SCH ×4 (05:56→18:47)
[2016-04-22] MEDS: ALBUTEROL SULF 2.5 MG/0.5ML(0.5%) NEB SOLN NEB SCH ×4 (05:56→18:47)
[2016-04-22 05:57] LABS: Red Cell Distribution Width 21.2 % (11.6-16.0)
[2016-04-22] MEDS: BUDESONIDE (INHALATION) 0.5 MG/2 ML NEB NEB SCH ×2 (05:57→18:47)
[2016-04-22 06:00] LABS: Potassium 4.1 mmol/L (3.5-5.1)
[2016-04-22] MEDS: InsuLIN REG 1unit/0.01ml Soln (100units/ml) SC SCH ×4 (06:00→17:40)
[2016-04-22 06:05] LABS: Albumin 2.8 g/dL (3.4-5.0); BUN/Creatinine Ratio 12.2; Calcium 8.8 mg/dL (8.5-10.1); Partial Thromboplastin Time 44.1 sec (22.64-33.71)
[2016-04-22 06:08] LABS: Bilirubin, Total 0.5 mg/dL (0.2-1.0)
[2016-04-22 06:10] LABS: Prothrombin Time 24.8 sec (9.37-12.3)
[2016-04-22 06:11] LABS: INR 2.41 (0.9-1.15)
[2016-04-22] MEDS: ACCU-CHEK COMFORT CURVE STRIP VI SCH ×4 (06:29→17:39)
[2016-04-22 06:53] LABS: Anisocytosis Slight; Platelet Estimate Adequate
[2016-04-22] MEDS: ERTAPENEM SOD INJ 0.5 GM in SODIUM CHL 0.9% 50 ML IV SCH (10:00)
[2016-04-22] MEDS: FLORASTOR (S. BOULARDII) 250 MG CAP PO SCH ×2 (10:00→21:29)
[2016-04-22] MEDS: PANTOPRAZOLE 40 MG TAB PO SCH (10:00)
[2016-04-22] MEDS: METOPROLOL TARTRATE 25 MG TAB PO SCH ×2 (10:00→21:29)
[2016-04-22] MEDS: FLUCONAZOLE 200MG/100ML 100 ML IV SCH (14:20)
[2016-04-22] MEDS ORDERED: WARFARIN SODIUM 1 MG TAB PO ONE (17:00)
[2016-04-22] MEDS: HYDROcodone-ACET 5/325MG TAB PO PRN (18:23)
[2016-04-22] MEDS ORDERED: LORazepam 2MG/ML-1ML VIAL IV PRN (18:30)
[2016-04-23] VITALS: BP 108/48
[2016-04-23] MEDS: ACCU-CHEK COMFORT CURVE STRIP VI SCH ×4 (00:16→18:00)
[2016-04-23] MEDS: InsuLIN REG 1unit/0.01ml Soln (100units/ml) SC SCH ×4 (05:22→18:00)
[2016-04-23] MEDS: metroNIDAZOLE 500 MG TAB PO SCH ×3 (05:30→23:54)
[2016-04-23] MEDS: ALBUTEROL SULF 2.5 MG/0.5ML(0.5%) NEB SOLN NEB SCH ×5 (06:28→22:20)
[2016-04-23] MEDS: IPRATROPIUM BROM 0.5 MG/2.5ML INH SOL NEB SCH ×5 (06:28→22:20)
[2016-04-23 06:30] LABS: BUN/Creatinine Ratio 11.6; Basophils # (auto) 0.1 uL; Basophils % (auto) 0.5 % (0.0-2.0); DEFINITIVE VIEW TRANSMISSION; Eosinophils # (auto) 0.1 uL; Eosinophils % (auto) 0.9 % (0.0-7.0); Hematocrit 31.2 % (36.0-46.0); Hemoglobin 9.2 g/dL (12.2-16.2); Lymphocytes # (auto) 1.8 uL; Lymphocytes % (auto) 15.4 % (10.0-50.0); Mean Corpuscular Hemoglobin 29.8 pg (28.0-32.0); Mean Corpuscular Hgb Conc. 29.4 g/dL (32.0-36.0); Mean Corpuscular Volume 101.5 fL (80.0-100.0); Mean Platelet Volume 8.6 fL (7.4-10.4); Monocytes # (auto) 1.3 uL; Monocytes % (auto) 11.4 % (0.0-12.0); Neutrophils # (auto) 8.4 uL; Neutrophils % (auto) 71.8 % (37.0-80.0); Platelet Count (auto) 275 10^3/uL (140-450); Potassium 3.4 mmol/L (3.5-5.1); White Blood Cell 11.7 10^3/uL (4.4-10.8)
[2016-04-23 06:38] LABS: Red Cell Distribution Width 21.8 % (11.6-16.0)
[2016-04-23 07:06] LABS: Partial Thromboplastin Time 37.7 sec (22.64-33.71)
[2016-04-23 07:22] LABS: INR 1.87 (0.9-1.15); Prothrombin Time 19.3 sec (9.37-12.3)
[2016-04-23 08:00] VITALS: BP 120/61
[2016-04-23 09:17] LABS: Anisocytosis Slight; Platelet Estimate Adequate
[2016-04-23] MEDS: BUDESONIDE (INHALATION) 0.5 MG/2 ML NEB NEB SCH ×2 (09:58→22:20)
[2016-04-23] MEDS: PANTOPRAZOLE 40 MG TAB PO SCH (10:00)
[2016-04-23] MEDS: FLORASTOR (S. BOULARDII) 250 MG CAP PO SCH ×2 (10:09→23:54)
[2016-04-23] MEDS: ERTAPENEM SOD INJ 0.5 GM in SODIUM CHL 0.9% 50 ML IV SCH (10:09)
[2016-04-23] MEDS: METOPROLOL TARTRATE 25 MG TAB PO SCH ×2 (10:42→23:54)
[2016-04-23] MEDS ORDERED: POTASSIUM CHLORIDE 20 MEQ, LIDOCAINE 1% (LOCAL ANESTH.) 2 ML in SODIUM CHL 0.9% 100 ML IV ONE (11:15)
[2016-04-23 12:00] VITALS: BP 110/55
[2016-04-23] MEDS: OMEPRAZOLE 20MG/10ML ORAL SUSP GT SCH (12:22)
[2016-04-23] MEDS: FLUCONAZOLE 200MG/100ML 100 ML IV SCH (13:51)
[2016-04-23] MEDS ORDERED: WARFARIN SODIUM 2 MG TAB PO ONE (17:00)
[2016-04-23 20:00] VITALS: BP 107/65
[2016-04-23 22:20] VITALS: BP 115/59
[2016-04-24] VITALS (7 sets, daily range): BP systolic 98–120; BP diastolic 50–70
[2016-04-24] MEDS: InsuLIN REG 1unit/0.01ml Soln (100units/ml) SC SCH ×4 (06:00→18:00)
[2016-04-24] MEDS: ACCU-CHEK COMFORT CURVE STRIP VI SCH ×4 (06:00→18:00)
[2016-04-24 06:09] LABS: Basophils # (auto) 0 uL; Basophils % (auto) 0.2 % (0.0-2.0); DEFINITIVE VIEW TRANSMISSION; Eosinophils # (auto) 0.2 uL; Hematocrit 29.5 % (36.0-46.0); Hemoglobin 8.8 g/dL (12.2-16.2); Lymphocytes # (auto) 1.9 uL; Lymphocytes % (auto) 12.1 % (10.0-50.0); Mean Corpuscular Hemoglobin 30.1 pg (28.0-32.0); Mean Corpuscular Volume 100.4 fL (80.0-100.0); Mean Platelet Volume 8.5 fL (7.4-10.4); Monocytes # (auto) 1.3 uL; Monocytes % (auto) 8.4 % (0.0-12.0); Neutrophils # (auto) 12.1 uL; Neutrophils % (auto) 78.3 % (37.0-80.0); Platelet Count (auto) 263 10^3/uL (140-450); White Blood Cell 15.4 10^3/uL (4.4-10.8)
[2016-04-24 06:14] LABS: Red Cell Distribution Width 21.7 % (11.6-16.0)
[2016-04-24 06:17] LABS: Partial Thromboplastin Time 38.5 sec (22.64-33.71)
[2016-04-24 06:24] LABS: Albumin 2.7 g/dL (3.4-5.0); BUN/Creatinine Ratio 13.3
[2016-04-24 06:25] LABS: INR 2.68 (0.9-1.15); Prothrombin Time 27.6 sec (9.37-12.3)
[2016-04-24 06:26] LABS: Bilirubin, Total 0.4 mg/dL (0.2-1.0); Total Protein 6.9 g/dL (6.4-8.2)
[2016-04-24] MEDS: ALBUTEROL SULF 2.5 MG/0.5ML(0.5%) NEB SOLN NEB SCH ×4 (06:36→18:48)
[2016-04-24] MEDS: IPRATROPIUM BROM 0.5 MG/2.5ML INH SOL NEB SCH ×4 (06:36→18:48)
[2016-04-24] MEDS: metroNIDAZOLE 500 MG TAB PO SCH ×3 (07:36→21:57)
[2016-04-24 09:04] LABS: Anisocytosis Slight; Large Platelets FEW; Platelet Estimate Adequate
[2016-04-24] MEDS: BUDESONIDE (INHALATION) 0.5 MG/2 ML NEB NEB SCH ×2 (10:05→18:48)
[2016-04-24] MEDS: OMEPRAZOLE 20MG/10ML ORAL SUSP GT SCH (10:12)
[2016-04-24] MEDS: FLORASTOR (S. BOULARDII) 250 MG CAP PO SCH ×2 (10:13→21:57)
[2016-04-24] MEDS: ERTAPENEM SOD INJ 0.5 GM in SODIUM CHL 0.9% 50 ML IV SCH (10:13)
[2016-04-24] MEDS: METOPROLOL TARTRATE 25 MG TAB PO SCH ×2 (10:14→21:57)
[2016-04-24] MEDS: FLUCONAZOLE 200MG/100ML 100 ML IV SCH (14:00)
[2016-04-24] MEDS ORDERED: EPOETIN ALFA 10,000 UNIT/1 ML VIAL IV ONE (14:30)
[2016-04-24] MEDS ORDERED: SODIUM CHL 0.9% 1000 ML BAG XX ONE (14:30)
[2016-04-24] MEDS ORDERED: WARFARIN SODIUM 1 MG TAB PO ONE (17:00)
[2016-04-25] VITALS (7 sets, daily range): BP systolic 105–118; BP diastolic 48–84
[2016-04-25 06:16] LABS: Basophils # (auto) 0 uL; Basophils % (auto) 0.3 % (0.0-2.0); DEFINITIVE VIEW TRANSMISSION; Eosinophils # (auto) 0.2 uL; Eosinophils % (auto) 1.5 % (0.0-7.0); Hematocrit 28.3 % (36.0-46.0); Hemoglobin 8.6 g/dL (12.2-16.2); Lymphocytes % (auto) 13.1 % (10.0-50.0); Mean Corpuscular Hemoglobin 30.8 pg (28.0-32.0); Mean Corpuscular Hgb Conc. 30.4 g/dL (32.0-36.0); Mean Corpuscular Volume 101.6 fL (80.0-100.0); Mean Platelet Volume 8.5 fL (7.4-10.4); Monocytes # (auto) 1.1 uL; Monocytes % (auto) 7.7 % (0.0-12.0); Neutrophils # (auto) 11.5 uL; Neutrophils % (auto) 77.4 % (37.0-80.0); Platelet Count (auto) 257 10^3/uL (140-450); White Blood Cell 14.9 10^3/uL (4.4-10.8)
[2016-04-25 06:24] LABS: Partial Thromboplastin Time 46.2 sec (22.64-33.71)
[2016-04-25 06:36] LABS: Albumin 2.5 g/dL (3.4-5.0); BUN/Creatinine Ratio 15.6; Bilirubin, Total 0.5 mg/dL (0.2-1.0); Calcium 8.8 mg/dL (8.5-10.1); Potassium 4.2 mmol/L (3.5-5.1); Total Protein 6.8 g/dL (6.4-8.2)
[2016-04-25 06:47] LABS: INR 2.85 (0.9-1.15); Prothrombin Time 29.4 sec (9.37-12.3)
[2016-04-25] MEDS: IPRATROPIUM BROM 0.5 MG/2.5ML INH SOL NEB SCH ×4 (07:33→20:59)
[2016-04-25] MEDS: ALBUTEROL SULF 2.5 MG/0.5ML(0.5%) NEB SOLN NEB SCH ×4 (07:33→20:59)
[2016-04-25] MEDS: metroNIDAZOLE 500 MG TAB PO SCH ×3 (07:50→22:02)
[2016-04-25 08:54] LABS: Platelet Estimate Adequate
[2016-04-25 08:55] LABS: Anisocytosis Moderate
[2016-04-25 08:56] LABS: Macrocytosis Slight
[2016-04-25] MEDS: ERTAPENEM SOD INJ 0.5 GM in SODIUM CHL 0.9% 50 ML IV SCH (09:54)
[2016-04-25] MEDS: METOPROLOL TARTRATE 25 MG TAB PO SCH ×2 (09:54→22:02)
[2016-04-25] MEDS: FLORASTOR (S. BOULARDII) 250 MG CAP PO SCH ×2 (09:54→22:02)
[2016-04-25] MEDS: OMEPRAZOLE 20MG/10ML ORAL SUSP GT SCH (09:55)
[2016-04-25] MEDS: BUDESONIDE (INHALATION) 0.5 MG/2 ML NEB NEB SCH ×2 (11:02→20:59)
[2016-04-25] MEDS: FLUCONAZOLE 200MG/100ML 100 ML IV SCH (15:03)
[2016-04-26] VITALS (13 sets, daily range): BP systolic 0–128; BP diastolic 0–69
[2016-04-26] MEDS: metroNIDAZOLE 500 MG TAB PO SCH ×3 (05:50→22:05)
[2016-04-26 06:26] LABS: Basophils # (auto) 0 uL; Basophils % (auto) 0.3 % (0.0-2.0); DEFINITIVE VIEW TRANSMISSION; Eosinophils # (auto) 0.2 uL; Eosinophils % (auto) 1.3 % (0.0-7.0); Hematocrit 27.8 % (36.0-46.0); Hemoglobin 8.3 g/dL (12.2-16.2); Lymphocytes # (auto) 2.1 uL; Lymphocytes % (auto) 16.3 % (10.0-50.0); Mean Corpuscular Hemoglobin 30.2 pg (28.0-32.0); Mean Corpuscular Hgb Conc. 29.9 g/dL (32.0-36.0); Mean Corpuscular Volume 101.1 fL (80.0-100.0); Mean Platelet Volume 8.6 fL (7.4-10.4); Monocytes # (auto) 1.2 uL; Monocytes % (auto) 9.2 % (0.0-12.0); Neutrophils # (auto) 9.5 uL; Neutrophils % (auto) 72.9 % (37.0-80.0); Platelet Count (auto) 254 10^3/uL (140-450)
[2016-04-26 06:33] LABS: Red Cell Distribution Width 22.4 % (11.6-16.0)
[2016-04-26 06:42] LABS: INR 2.69 (0.9-1.15); Partial Thromboplastin Time 47.9 sec (22.64-33.71); Prothrombin Time 27.7 sec (9.37-12.3)
[2016-04-26] MEDS: ALBUTEROL SULF 2.5 MG/0.5ML(0.5%) NEB SOLN NEB SCH ×4 (06:50→20:24)
[2016-04-26] MEDS: IPRATROPIUM BROM 0.5 MG/2.5ML INH SOL NEB SCH ×4 (06:50→20:24)
[2016-04-26 06:53] LABS: BUN/Creatinine Ratio 16.8; Calcium 8.7 mg/dL (8.5-10.1); Potassium 4.4 mmol/L (3.5-5.1)
[2016-04-26 07:51] LABS: Platelet Estimate Adequate
[2016-04-26 07:52] LABS: Anisocytosis Slight; Macrocytosis Slight
[2016-04-26] MEDS: BUDESONIDE (INHALATION) 0.5 MG/2 ML NEB NEB SCH ×2 (09:31→20:24)
[2016-04-26] MEDS: OMEPRAZOLE 20MG/10ML ORAL SUSP GT SCH (10:00)
[2016-04-26] MEDS: ERTAPENEM SOD INJ 0.5 GM in SODIUM CHL 0.9% 50 ML IV SCH (10:00)
[2016-04-26] MEDS ORDERED: ALBUMIN 25% 100 ML IV STA ×2 (10:37)
[2016-04-26] MEDS: FLUCONAZOLE 200MG/100ML 100 ML IV SCH (14:00)
[2016-04-26] MEDS: FLORASTOR (S. BOULARDII) 250 MG CAP PO SCH ×2 (14:48→22:14)
[2016-04-26] MEDS: METOPROLOL TARTRATE 25 MG TAB PO SCH ×2 (14:49→22:05)
[2016-04-26] MEDS ORDERED: LORazepam 2MG/ML-1ML VIAL IV PRN (16:45)
[2016-04-26] MEDS: MORPHINE SULF INJ 2 MG/ML SYRINGE 1ML IV PRN (18:01)
[2016-04-27] VITALS (17 sets, daily range): BP systolic 0–143; BP diastolic 0–70
[2016-04-27] MEDS: metroNIDAZOLE 500 MG TAB PO SCH ×3 (05:39→22:09)
[2016-04-27 06:30] LABS: Basophils # (auto) 0 uL; Basophils % (auto) 0.2 % (0.0-2.0); DEFINITIVE VIEW TRANSMISSION; Eosinophils # (auto) 0.2 uL; Eosinophils % (auto) 1.5 % (0.0-7.0); Hematocrit 27.3 % (36.0-46.0); Hemoglobin 8.3 g/dL (12.2-16.2); Lymphocytes # (auto) 1.8 uL; Lymphocytes % (auto) 14.8 % (10.0-50.0); Mean Corpuscular Hemoglobin 30.7 pg (28.0-32.0); Mean Corpuscular Hgb Conc. 30.4 g/dL (32.0-36.0); Mean Platelet Volume 8.9 fL (7.4-10.4); Monocytes # (auto) 1.3 uL; Monocytes % (auto) 10.7 % (0.0-12.0); Neutrophils # (auto) 8.6 uL; Neutrophils % (auto) 72.8 % (37.0-80.0); Platelet Count (auto) 233 10^3/uL (140-450); Red Cell Distribution Width 22.4 % (11.6-16.0); White Blood Cell 11.8 10^3/uL (4.4-10.8)
[2016-04-27 06:32] LABS: Mean Corpuscular Volume 100.9 fL (80.0-100.0)
[2016-04-27] MEDS: IPRATROPIUM BROM 0.5 MG/2.5ML INH SOL NEB SCH ×3 (06:49→18:33)
[2016-04-27] MEDS: BUDESONIDE (INHALATION) 0.5 MG/2 ML NEB NEB SCH ×2 (06:50→22:37)
[2016-04-27] MEDS: ALBUTEROL SULF 2.5 MG/0.5ML(0.5%) NEB SOLN NEB SCH ×3 (06:50→18:33)
[2016-04-27 07:44] LABS: INR 1.9 (0.9-1.15); Prothrombin Time 19.6 sec (9.37-12.3)
[2016-04-27 08:24] LABS: BUN/Creatinine Ratio 17.5; Calcium 8.9 mg/dL (8.5-10.1); Potassium 4.4 mmol/L (3.5-5.1)
[2016-04-27] MEDS: METOPROLOL TARTRATE 25 MG TAB PO SCH ×2 (10:03→22:10)
[2016-04-27] MEDS: OMEPRAZOLE 20MG/10ML ORAL SUSP GT SCH (10:03)
[2016-04-27] MEDS: ERTAPENEM SOD INJ 0.5 GM in SODIUM CHL 0.9% 50 ML IV SCH (12:29)
[2016-04-27] MEDS: FLORASTOR (S. BOULARDII) 250 MG CAP PO SCH ×2 (12:29→22:00)
[2016-04-27] MEDS: FLUCONAZOLE 200MG/100ML 100 ML IV SCH (14:10)
[2016-04-27] MEDS ORDERED: WARFARIN SODIUM 1 MG TAB PO ONE (17:00)
[2016-04-27] MEDS: Novasource Renal 1 Liter GT SCH (17:30)
[2016-04-28] VITALS (15 sets, daily range): BP systolic 0–150; BP diastolic 0–105
[2016-04-28] MEDS: metroNIDAZOLE 500 MG TAB PO SCH ×3 (05:41→23:45)
[2016-04-28] MEDS: MORPHINE SULF INJ 2 MG/ML SYRINGE 1ML IV PRN (05:42)
[2016-04-28 06:06] LABS: Basophils # (auto) 0 uL; Basophils % (auto) 0.3 % (0.0-2.0); DEFINITIVE VIEW TRANSMISSION; Eosinophils # (auto) 0.1 uL; Eosinophils % (auto) 1.3 % (0.0-7.0); Hematocrit 26.3 % (36.0-46.0); Hemoglobin 8.2 g/dL (12.2-16.2); Lymphocytes # (auto) 1.4 uL; Lymphocytes % (auto) 12.8 % (10.0-50.0); Mean Corpuscular Hemoglobin 30.9 pg (28.0-32.0); Mean Corpuscular Hgb Conc. 31.2 g/dL (32.0-36.0); Mean Corpuscular Volume 98.9 fL (80.0-100.0); Mean Platelet Volume 8.8 fL (7.4-10.4); Monocytes % (auto) 8.9 % (0.0-12.0); Neutrophils # (auto) 8.5 uL; Neutrophils % (auto) 76.7 % (37.0-80.0); Platelet Count (auto) 247 10^3/uL (140-450)
[2016-04-28 06:14] LABS: Partial Thromboplastin Time 40.8 sec (22.64-33.71); Red Cell Distribution Width 21.9 % (11.6-16.0)
[2016-04-28 06:26] LABS: INR 1.97 (0.9-1.15); Prothrombin Time 20.3 sec (9.37-12.3)
[2016-04-28] MEDS: ALBUTEROL SULF 2.5 MG/0.5ML(0.5%) NEB SOLN NEB SCH ×4 (06:42→18:29)
[2016-04-28] MEDS: BUDESONIDE (INHALATION) 0.5 MG/2 ML NEB NEB SCH ×2 (06:42→21:32)
[2016-04-28 06:43] LABS: Potassium 4.7 mmol/L (3.5-5.1)
[2016-04-28] MEDS: IPRATROPIUM BROM 0.5 MG/2.5ML INH SOL NEB SCH ×4 (06:43→18:29)
[2016-04-28 06:47] LABS: Anisocytosis Slight; Platelet Estimate Adequate
[2016-04-28 06:48] LABS: BUN/Creatinine Ratio 19.1
[2016-04-28] MEDS ORDERED: ALBUMIN 25% 100 ML IV ONE (06:48)
[2016-04-28] MEDS ORDERED: ALBUMIN 25% 100 ML IV SCH (07:00)
[2016-04-28] MEDS: ALBUMIN 25% 100 ML IV SCH ×2 (08:24→10:00)
[2016-04-28] MEDS: OMEPRAZOLE 20MG/10ML ORAL SUSP GT SCH (10:00)
[2016-04-28] MEDS: ERTAPENEM SOD INJ 0.5 GM in SODIUM CHL 0.9% 50 ML IV SCH (10:00)
[2016-04-28] MEDS: FLORASTOR (S. BOULARDII) 250 MG CAP PO SCH ×2 (11:22→22:00)
[2016-04-28] MEDS: METOPROLOL TARTRATE 25 MG TAB PO SCH ×2 (11:23→23:48)
[2016-04-28] MEDS: FLUCONAZOLE 200MG/100ML 100 ML IV SCH (13:51)
[2016-04-28] MEDS: ACETAMINOPHEN 650 mg PER 20 mL UD GT PRN (16:55)
[2016-04-28] MEDS ORDERED: WARFARIN SODIUM 1 MG TAB PO ONE (17:00)
[2016-04-29] VITALS (8 sets, daily range): BP systolic 0–143; BP diastolic 0–70
[2016-04-29] MEDS: metroNIDAZOLE 500 MG TAB PO SCH ×3 (05:14→22:30)
[2016-04-29] MEDS: ALBUTEROL SULF 2.5 MG/0.5ML(0.5%) NEB SOLN NEB SCH ×4 (06:24→18:01)
[2016-04-29] MEDS: BUDESONIDE (INHALATION) 0.5 MG/2 ML NEB NEB SCH ×2 (06:24→18:01)
[2016-04-29] MEDS: IPRATROPIUM BROM 0.5 MG/2.5ML INH SOL NEB SCH ×4 (06:24→18:01)
[2016-04-29 06:55] LABS: Basophils # (auto) 0 uL; Basophils % (auto) 0.4 % (0.0-2.0); DEFINITIVE VIEW TRANSMISSION; Eosinophils # (auto) 0.2 uL; Eosinophils % (auto) 1.5 % (0.0-7.0); Hematocrit 27.3 % (36.0-46.0); Hemoglobin 8.1 g/dL (12.2-16.2); Lymphocytes % (auto) 18.7 % (10.0-50.0); Mean Corpuscular Hemoglobin 29.6 pg (28.0-32.0); Mean Corpuscular Hgb Conc. 29.7 g/dL (32.0-36.0); Mean Corpuscular Volume 99.7 fL (80.0-100.0); Mean Platelet Volume 8.8 fL (7.4-10.4); Monocytes # (auto) 1.3 uL; Neutrophils # (auto) 7.3 uL; Neutrophils % (auto) 67.4 % (37.0-80.0); Platelet Count (auto) 302 10^3/uL (140-450); White Blood Cell 10.9 10^3/uL (4.4-10.8)
[2016-04-29] MEDS ORDERED: INFLUENZA QUAD 2016-2017 0.5 ML SYRG IM ONE (07:00)
[2016-04-29] MEDS ORDERED: PNEUMOCOCCAL VACC POLYS 25 MCG/0.5 ML VIAL IM ONE (07:00)
[2016-04-29 07:10] LABS: Potassium 4.5 mmol/L (3.5-5.1)
[2016-04-29 07:12] LABS: BUN/Creatinine Ratio 17.2
[2016-04-29 07:34] LABS: Red Cell Distribution Width 21.8 % (11.6-16.0)
[2016-04-29 08:33] LABS: Anisocytosis Moderate; Giant Platelets Few; Hypochromia Slight; Platelet Estimate Adequate; Stomatocytes Few
[2016-04-29 10:06] LABS: Partial Thromboplastin Time 37.5 sec (22.64-33.71)
[2016-04-29 10:11] LABS: INR 1.76 (0.9-1.15); Prothrombin Time 18.1 sec (9.37-12.3)
[2016-04-29] MEDS: FLORASTOR (S. BOULARDII) 250 MG CAP PO SCH ×2 (11:03→22:30)
[2016-04-29] MEDS: METOPROLOL TARTRATE 25 MG TAB PO SCH ×3 (11:04→13:43)
[2016-04-29] MEDS: OMEPRAZOLE 20MG/10ML ORAL SUSP GT SCH (11:04)
[2016-04-29] MEDS: ERTAPENEM SOD INJ 0.5 GM in SODIUM CHL 0.9% 50 ML IV SCH (11:05)
[2016-04-29] MEDS: FLUCONAZOLE 200MG/100ML 100 ML IV SCH (13:52)
[2016-04-29] MEDS ORDERED: EPOETIN ALFA 10,000 UNIT/1 ML VIAL IV ONE (15:30)
[2016-04-29] MEDS ORDERED: SODIUM CHL 0.9% 1000 ML BAG XX ONE (15:30)
[2016-04-29] MEDS ORDERED: WARFARIN SODIUM 2 MG TAB PO ONE (17:00)
[2016-04-29] MEDS ORDERED: ENOXAPARIN SOD 100 MG/1 ML SYRINGE SC SCH (22:00)
[2016-04-30 05:00] VITALS: BP 95/41
[2016-04-30] MEDS: metroNIDAZOLE 500 MG TAB PO SCH ×2 (05:42→13:39)
[2016-04-30 06:05] LABS: Basophils # (auto) 0 uL; Basophils % (auto) 0.3 % (0.0-2.0); DEFINITIVE VIEW TRANSMISSION; Eosinophils # (auto) 0.1 uL; Eosinophils % (auto) 1.1 % (0.0-7.0); Hematocrit 27.3 % (36.0-46.0); Hemoglobin 8.1 g/dL (12.2-16.2); Lymphocytes # (auto) 1.8 uL; Lymphocytes % (auto) 15.4 % (10.0-50.0); Mean Corpuscular Hemoglobin 30.3 pg (28.0-32.0); Mean Corpuscular Hgb Conc. 29.9 g/dL (32.0-36.0); Mean Corpuscular Volume 101.7 fL (80.0-100.0); Mean Platelet Volume 8.3 fL (7.4-10.4); Monocytes # (auto) 1.7 uL; Monocytes % (auto) 14.8 % (0.0-12.0); Neutrophils # (auto) 7.9 uL; Neutrophils % (auto) 68.4 % (37.0-80.0); Platelet Count (auto) 299 10^3/uL (140-450); White Blood Cell 11.5 10^3/uL (4.4-10.8)
[2016-04-30 06:09] LABS: Red Cell Distribution Width 22.1 % (11.6-16.0)
[2016-04-30] MEDS: Novasource Renal 1 Liter GT SCH (06:30)
[2016-04-30 06:37] LABS: Partial Thromboplastin Time 38.6 sec (22.64-33.71)
[2016-04-30] MEDS: IPRATROPIUM BROM 0.5 MG/2.5ML INH SOL NEB SCH ×4 (06:38→18:00)
[2016-04-30] MEDS: ALBUTEROL SULF 2.5 MG/0.5ML(0.5%) NEB SOLN NEB SCH ×4 (06:38→18:00)
[2016-04-30] MEDS: BUDESONIDE (INHALATION) 0.5 MG/2 ML NEB NEB SCH (06:39)
[2016-04-30 06:46] LABS: INR 1.73 (0.9-1.15); Prothrombin Time 17.8 sec (9.37-12.3)
[2016-04-30 06:48] LABS: Potassium 4.5 mmol/L (3.5-5.1)
[2016-04-30 06:50] LABS: BUN/Creatinine Ratio 18.9
[2016-04-30 07:31] LABS: Anisocytosis Moderate; Macrocytosis Moderate; Platelet Estimate Adequate
[2016-04-30 09:00] VITALS: BP 92/68
[2016-04-30] MEDS ORDERED: ENOXAPARIN SOD 100 MG/1 ML SYRINGE SC SCH (10:00)
[2016-04-30] MEDS: OMEPRAZOLE 20MG/10ML ORAL SUSP GT SCH ×2 (10:00→13:36)
[2016-04-30] MEDS: ERTAPENEM SOD INJ 0.5 GM in SODIUM CHL 0.9% 50 ML IV SCH (12:29)
[2016-04-30] MEDS: FLORASTOR (S. BOULARDII) 250 MG CAP PO SCH ×2 (12:29→21:23)
[2016-04-30 13:00] VITALS: BP 121/47
[2016-04-30] MEDS: FLUCONAZOLE 200MG/100ML 100 ML IV SCH (13:39)
[2016-04-30 17:00] VITALS: BP 62/43
[2016-04-30] MEDS: HYDROmorphone HCL 2 MG/ML VL IV PRN ×2 (17:19→21:22)
[2016-04-30 22:00] VITALS: BP 80/16
[2016-04-30 22:40] VITALS: BP 74/14
[2016-05-01 00:45] VITALS: BP 59/14
[2016-05-01] MEDS: HYDROmorphone HCL 2 MG/ML VL IV PRN ×2 (02:36→04:59)
[2016-05-01 05:00] VITALS: BP 41/11
== END 2016-05-01 10:13 | disposition expired | DRG 720 ==
LOC: EDUNIT# 14:38 → ER 14:51 → TELE 14:52 → ICU WEST 19:27 → DOU IN ICU 04-18 00:25 → TELE-EAST 04-25 18:23 → DOU IN ICU 04-26 15:30 → TELE-EAST 04-28 20:27
PROVIDERS: ADMIT Internal Medicine; ATTEND Family Medicine
PROC: 5A1955Z Respiratory Ventilation, Greater than 96 Consecutive Hours (ICD-10-PCS; principal; 2016-04-06)
PROC: 0BH17EZ Insertion of Endotracheal Airway into Trachea, Via Natural or Artificial Opening (ICD-10-PCS; 2016-04-06)
PROC: 02HV33Z Insertion of Infusion Device into Superior Vena Cava, Percutaneous Approach (ICD-10-PCS; 2016-04-07)
PROC: 30233N1 Transfusion of Nonautologous Red Blood Cells into Peripheral Vein, Percutaneous Approach (ICD-10-PCS; 2016-04-08)
PROC: 5A1D60Z (ICD-10-PCS; 2016-04-08)
PROC: 5A09557 Assistance with Respiratory Ventilation, Greater than 96 Consecutive Hours, Continuous Positive Airway Pressure (ICD-10-PCS; 2016-04-19)
DX: A41.9 Sepsis, unspecified organism (principal); J96.01 Acute respiratory failure with hypoxia; J69.0 Pneumonitis due to inhalation of food and vomit; I63.9 Cerebral infarction, unspecified; R65.21 Severe sepsis with septic shock; G92 Toxic encephalopathy; E43 Unspecified severe protein-calorie malnutrition; I50.43 Acute on chronic combined systolic (congestive) and diastolic (congestive) heart failure; A04.7 Enterocolitis due to Clostridium difficile; Z66 Do not resuscitate; G93.1 Anoxic brain damage, not elsewhere classified; N18.6 End stage renal disease; I82.622 Acute embolism and thrombosis of deep veins of left upper extremity; K21.9 Gastro-esophageal reflux disease without esophagitis; E78.5 Hyperlipidemia, unspecified; I67.9 Cerebrovascular disease, unspecified; N82.8 Other female genital tract fistulae; E11.21 Type 2 diabetes mellitus with diabetic nephropathy; E11.22 Type 2 diabetes mellitus with diabetic chronic kidney disease; I13.2 Hypertensive heart and chronic kidney disease with heart failure and with stage 5 chronic kidney disease, or end stage renal disease; J44.0 Chronic obstructive pulmonary disease with (acute) lower respiratory infection; D63.8 Anemia in other chronic diseases classified elsewhere; R00.0 Tachycardia, unspecified; I08.0 Rheumatic disorders of both mitral and aortic valves; I25.10 Atherosclerotic heart disease of native coronary artery without angina pectoris; B96.89 Other specified bacterial agents as the cause of diseases classified elsewhere; Z90.49 Acquired absence of other specified parts of digestive tract; Z90.710 Acquired absence of both cervix and uterus; Z99.2 Dependence on renal dialysis; Z87.01 Personal history of pneumonia (recurrent); Z98.890 Other specified postprocedural states; Z82.49 Family history of ischemic heart disease and other diseases of the circulatory system; Z83.3 Family history of diabetes mellitus; Z83.2 Family history of diseases of the blood and blood-forming organs and certain disorders involving the immune mechanism; Z23 Encounter for immunization; Z68.1 Body mass index [BMI] 19.9 or less, adult
CPT/HCPCS: 31500; 31720; 36415; 36569; 36600; 70450; 71010; 71250; 80048; 80053; 80202; 82805; 82962; 83036; 83605; 83735; 84484; 85025; 85049; 85379; 85610; 85730; 86141; 86850; 86900; 86901; 86920; 87040; 87070; 87077; 87081; 87186; 87205; 87493; 90935; 92610; 93005; 93306; 93971; 94002; 94003; 94640; 94660; 96365; 96366; 96368; 96372; 96375; 97001; 97110; 97530; 99291; C9113; J0330; J0696; J0885; J1335; J1450; J1642; J1815; J2001; J2185; J2704; J3430; J3490; J7060; Q4081